=== PATIENT | male | born 1960 | race Caucasian/White ===

== ENCOUNTER 2021-06-01 13:18 | Emergency (ER) | payer OTHER ==
[~2021-06-01 13:18] MED LIST: IBUPROFEN800 MG PO; PROAIR DIGIHAL90 MCG INH; QVAR REDIHALE10.6 G1 INH
[2021-06-01 14:28] LABS: HEMOGLOBIN 15.4 gm/dl (14.0-17.5); RED BLOOD COUNT 4.46 M/UL (4.20-5.50); WHITE BLOOD COUNT 9.8 K/UL (4.5-11.0)
[2021-06-01 15:38] LABS: BUN/CREATININE RATIO 12 (0-10)
== END 2021-06-01 18:39 | disposition home or self-care (01) ==
LOC: ER1 13:18
PROVIDERS: Physician Assistant Medical
DX: R10.9 Unspecified abdominal pain (principal); R06.02 Shortness of breath; I50.9 Heart failure, unspecified; J44.9 Chronic obstructive pulmonary disease, unspecified; F17.210 Nicotine dependence, cigarettes, uncomplicated; Z20.822 Contact with and (suspected) exposure to COVID-19; Z87.442 Personal history of urinary calculi
CPT/HCPCS: 71045; 80053; 81001; 82550; 82553; 83605; 83690; 83874; 84484; 85025; 96374; 99285; J1885; U0002